=== PATIENT | female | born 1980 | race Two or more races ===

== ENCOUNTER 2024-01-31 02:44 | Inpatient (IN) | payer MEDICAID ==
[~2024-01-31] VITALS: Ht 154.9 cm; Wt 95.3 kg
[2024-01-31 03:00] VITALS: PULSE 133; RESP 26; O2SAT 95
[2024-01-31] MEDS: VANCOMYCIN 1GM/200ML 200 ML IV ONE (03:45)
[2024-01-31] MEDS: SODIUM CHLORIDE 0.9% 1,000 ML IV ONE ×4 (03:45→07:01)
[2024-01-31] MEDS: PIPERACILLIN-TAZOB 3.375GM 100 ML IV ONE (03:45)
[2024-01-31 04:15] LABS: Basophils # (auto) 0 10 ^3/uL (0-0.2); Basophils % (auto) 0.2 % (0.0-2.0); Eosinophils # (auto) 0 10 ^3/uL (0-0.8); Eosinophils % (auto) 0.1 % (0.0-7.0); Hematocrit 36.9 % (36.0-46.0); Hemoglobin 12.3 g/dL (12.2-16.2); Lymphocytes # (auto) 0.3 10 ^3/uL (0.4-5.4); Lymphocytes % (auto) 5.1 % (10.0-50.0); Mean Corpuscular Hemoglobin 28.9 pg (28.0-32.0); Mean Corpuscular Hgb Conc. 33.2 g/dL (32.0-36.0); Mean Corpuscular Volume 86.9 fL (80.0-100.0); Monocytes # (auto) 0 10 ^3/uL (0-1.3); Monocytes % (auto) 0.7 % (0.0-12.0); Neutrophils # (auto) 4.8 10 ^3/uL (1.6-8.6); Neutrophils % (auto) 93.9 % (37.0-80.0); Nucleated Red Blood Cells % 0.2 %; Red Blood Cells 4.25 10^6/uL (4.0-5.20); Red Cell Distribution Width 14.5 % (11.8-14.3); White Blood Cell 5.1 10^3/uL (4.4-10.8)
[2024-01-31 04:17] LABS: Chloride 108 mmol/L (98-107); Potassium 3.3 mmol/L (3.5-5.1); Sodium 139 mmol/L (136-145)
[2024-01-31 04:18] LABS: Anion Gap 11 (5-15); Calcium 8.9 mg/dL (8.7-10.4); Carbon Dioxide 20 mmol/L (20-30)
[2024-01-31 04:23] LABS: Glucose 147 mg/dL (74-106)
[2024-01-31 04:25] LABS: BUN/Creatinine Ratio 9.7 (10.0-20.0); Blood Urea Nitrogen 12 mg/dL (9-23)
[2024-01-31] MEDS ORDERED: ONDANSETRON HCL 4 MG/2 ML VIAL IV PRN (06:30)
[2024-01-31] MEDS ORDERED: VANCOMYCIN PER PHARMACY 0 MG IV SCH (06:30)
[2024-01-31] MEDS: SODIUM CHLORIDE 0.9% 1,000 ML IV SCH (06:50)
[2024-01-31] MEDS: HYDROcodone-ACET 5/325MG TAB PO PRN (06:51)
[2024-01-31 06:52] LABS: Albumin 3.9 g/dL (3.2-4.8)
[2024-01-31 06:52] LABS: Urine Bacteria None Seen /hpf (None Seen)
[2024-01-31 06:53] LABS: Total Protein 6.8 g/dL (5.7-8.2)
[2024-01-31 07:28] LABS: Bilirubin, Direct 0.5 mg/dL (<0.3)
[2024-01-31 07:29] LABS: Urine Blood 3+ /uL (Negative); Urine Clarity Turbid (Clear); Urine Color Light-Orange (Yellow); Urine Mucus FEW (None Seen); Urine Protein, UAD 2+ (Negative); Urine Specific Gravity 1.021 (1.001-1.035); Urine Urobilinogen Normal (Negative); Urine WBC 36 /hpf (0 - 5); Urine pH 5.5 (5.0-9.0)
[2024-01-31 08:00] VITALS: PULSE 107; RESP 30; O2SAT 96
[2024-01-31] MEDS ORDERED: NITROGLYCERIN 0.4 MG SL TAB SL PRN (08:00)
[2024-01-31] MEDS ORDERED: MORPHINE SULFATE INJ 2 MG/ml SYRG IV PRN (08:00)
[2024-01-31] MEDS: POTASSIUM CHL 20 Meq TABLET PO ONE (08:58)
[2024-01-31] MEDS: NOREPINEPHRINE 8 MG/250ML KIT 250 ML IV SCH (09:00)
[2024-01-31] MEDS: PIPERACILLIN-TAZOB 3.375GM 100 ML IV SCH (13:39)
[2024-01-31] MEDS: ACETAMINOPHEN 325 MG TAB PO PRN (21:11)
[2024-01-31] MEDS: VANCOMYCIN 750mg/150ml 150 ML IV SCH (21:49)
[2024-02-01 06:18] LABS: Basophils # (auto) 0.1 10 ^3/uL (0-0.2); Basophils % (auto) 0.4 % (0.0-2.0); Eosinophils # (auto) 0.1 10 ^3/uL (0-0.8); Eosinophils % (auto) 0.9 % (0.0-7.0); Hematocrit 32.9 % (36.0-46.0); Lymphocytes # (auto) 0.7 10 ^3/uL (0.4-5.4); Lymphocytes % (auto) 4.2 % (10.0-50.0); Mean Corpuscular Hemoglobin 29.1 pg (28.0-32.0); Mean Corpuscular Hgb Conc. 33.3 g/dL (32.0-36.0); Mean Corpuscular Volume 87.5 fL (80.0-100.0); Monocytes # (auto) 0.9 10 ^3/uL (0-1.3); Monocytes % (auto) 5.3 % (0.0-12.0); Neutrophils # (auto) 14.9 10 ^3/uL (1.6-8.6); Neutrophils % (auto) 89.2 % (37.0-80.0); Red Blood Cells 3.76 10^6/uL (4.0-5.20); Red Cell Distribution Width 15.5 % (11.8-14.3); White Blood Cell 16.7 10^3/uL (4.4-10.8)
[2024-02-01 06:32] LABS: Alanine Aminotransferase 76 U/L (7-40); Albumin 3.6 g/dL (3.2-4.8); Alkaline Phosphatase 118 U/L (46-116); Anion Gap 10 (5-15); Aspartate Aminotransferase 72 U/L (13-40); Calcium 8.8 mg/dL (8.5-10.1); Carbon Dioxide 19 mmol/L (20-30); Chloride 111 mmol/L (98-107); Glucose 117 mg/dL (74-106); Potassium 3.5 mmol/L (3.5-5.1); Sodium 140 mmol/L (136-145)
[2024-02-01 06:33] LABS: Bilirubin, Total 1.9 mg/dL (0.2-1.0); Total Protein 6.2 g/dL (5.7-8.2)
[2024-02-01 06:40] LABS: Blood Urea Nitrogen < 5 mg/dL (9-23)
[2024-02-01] MEDS: SODIUM CHLORIDE 0.9% 1,000 ML IV SCH (14:30)
[2024-02-01 19:30] VITALS: PULSE 92; RESP 14; O2SAT 94
[2024-02-02] VITALS (10 sets, daily range): BP systolic 114–139; BP diastolic 48–81; PULSE 86–95; RESP 14–20; TEMP 97.2–98.8; O2SAT 95–98
[2024-02-02] MEDS ORDERED: LOSA-534 PO (02:30)
[2024-02-02] MEDS ORDERED: MULT-1018 PO (02:30)
[2024-02-02 11:46] LABS: Basophils # (auto) 0 10 ^3/uL (0-0.2); Basophils % (auto) 0.4 % (0.0-2.0); Eosinophils # (auto) 0.2 10 ^3/uL (0-0.8); Eosinophils % (auto) 1.8 % (0.0-7.0); Hemoglobin 11.6 g/dL (12.2-16.2); Lymphocytes # (auto) 0.8 10 ^3/uL (0.4-5.4); Lymphocytes % (auto) 6.6 % (10.0-50.0); Mean Corpuscular Hemoglobin 28.2 pg (28.0-32.0); Mean Corpuscular Hgb Conc. 32.2 g/dL (32.0-36.0); Mean Corpuscular Volume 87.6 fL (80.0-100.0); Monocytes # (auto) 0.5 10 ^3/uL (0-1.3); Monocytes % (auto) 3.8 % (0.0-12.0); Neutrophils # (auto) 10.4 10 ^3/uL (1.6-8.6); Neutrophils % (auto) 87.4 % (37.0-80.0); Red Blood Cells 4.11 10^6/uL (4.0-5.20); Red Cell Distribution Width 14.9 % (11.8-14.3); White Blood Cell 11.9 10^3/uL (4.4-10.8)
[2024-02-02 11:59] LABS: Chloride 106 mmol/L (98-107); Potassium 3.5 mmol/L (3.5-5.1); Sodium 137 mmol/L (136-145)
[2024-02-02 12:00] LABS: Anion Gap 7 (5-15); Calcium 9.1 mg/dL (8.5-10.1); Carbon Dioxide 24 mmol/L (20-30)
[2024-02-02 12:05] LABS: BUN/Creatinine Ratio 7.8 (10.0-20.0); Blood Urea Nitrogen 6 mg/dL (9-23); Glucose 164 mg/dL (74-106)
[2024-02-02] MEDS: DOCUSATE SOD 100 MG CAP PO PRN (12:47)
[2024-02-02] MEDS: MORPHINE SULFATE 4 MG/ML SYR/VIAL IV PRN (12:49)
[2024-02-03] VITALS (9 sets, daily range): BP systolic 115–142; BP diastolic 63–85; PULSE 86–101; RESP 14–22; TEMP 97.4–100; O2SAT 94–98
[2024-02-03] MEDS ORDERED: VANCOMYCIN 1GM/200ML 200 ML IV SCH
[2024-02-03] MEDS: VANCOMYCIN 1GM/200ML 200 ML IV SCH ×2 (01:37→12:00)
[2024-02-03 13:36] LABS: INR 0.95 (0.9-1.15); Partial Thromboplastin Time 25.5 SEC (24.5-34.5); Prothrombin Time 10.1 sec (9.3-11.8)
[2024-02-03 15:24] LABS: Urine Bacteria None Seen /hpf (None Seen)
[2024-02-03 15:40] LABS: Urine Amorphous Crystal FEW /hpf (None Seen); Urine Blood 1+ /uL (Negative); Urine Clarity Clear (Clear); Urine Color Light-Yellow (Yellow); Urine Mucus FEW (None Seen); Urine Protein, UAD Negative (Negative); Urine Specific Gravity 1.015 (1.001-1.035); Urine Urobilinogen Normal (Negative); Urine WBC 2 /hpf (0 - 5)
[2024-02-04] VITALS (9 sets, daily range): BP systolic 100–145; BP diastolic 60–83; PULSE 91–101; RESP 16–18; TEMP 98.3–99.3; O2SAT 92–98
[2024-02-04 07:07] LABS: Basophils # (auto) 0.1 10 ^3/uL (0-0.2); Basophils % (auto) 0.6 % (0.0-2.0); Eosinophils # (auto) 0.1 10 ^3/uL (0-0.8); Eosinophils % (auto) 0.8 % (0.0-7.0); Hemoglobin 12.2 g/dL (12.2-16.2); Lymphocytes % (auto) 13.6 % (10.0-50.0); Mean Corpuscular Hemoglobin 28.5 pg (28.0-32.0); Mean Corpuscular Hgb Conc. 32.9 g/dL (32.0-36.0); Mean Corpuscular Volume 86.6 fL (80.0-100.0); Monocytes # (auto) 1.1 10 ^3/uL (0-1.3); Monocytes % (auto) 7.4 % (0.0-12.0); Neutrophils # (auto) 11.5 10 ^3/uL (1.6-8.6); Neutrophils % (auto) 77.6 % (37.0-80.0); Red Blood Cells 4.28 10^6/uL (4.0-5.20); Red Cell Distribution Width 15.1 % (11.8-14.3); White Blood Cell 14.8 10^3/uL (4.4-10.8)
[2024-02-04 07:10] LABS: Alanine Aminotransferase 67 U/L (7-40); Alkaline Phosphatase 165 U/L (46-116); Anion Gap 6 (5-15); Calcium 8.9 mg/dL (8.7-10.4); Carbon Dioxide 23 mmol/L (20-30); Chloride 107 mmol/L (98-107); Potassium 3.5 mmol/L (3.5-5.1); Sodium 136 mmol/L (136-145)
[2024-02-04 07:11] LABS: Aspartate Aminotransferase 46 U/L (13-40); Glucose 132 mg/dL (74-106)
[2024-02-04 07:12] LABS: BUN/Creatinine Ratio 10.3 (10.0-20.0); Blood Urea Nitrogen 6 mg/dL (9-23); Magnesium 1.9 mg/dL (1.6-2.6)
[2024-02-04 07:13] LABS: Albumin 3.8 g/dL (3.2-4.8)
[2024-02-04 07:14] LABS: Bilirubin, Total 0.5 mg/dL (0.2-1.0); Total Protein 7.1 g/dL (5.7-8.2)
[2024-02-04] MEDS ORDERED: fentaNYL CITRATE 100 MCG/2 ML VL ONE (08:59)
[2024-02-04] MEDS ORDERED: PROPOFOL 10 MG/ML 20 ML IV ONE (08:59)
[2024-02-04] MEDS ORDERED: MEPERIDINE HCL (50 MG/ML) 1 ML VIAL ONE (09:32)
[2024-02-04] MEDS ORDERED: PHENYLEPHRINE HCL 10 MG/ML VL ONE (09:44)
[2024-02-04] MEDS ORDERED: MEPERIDINE HCL (25 MG/ML) 1ML VIAL ONE (10:10)
[2024-02-04] MEDS ORDERED: HYDROmorphone HCL 2 MG/ML VL/or syr IV PRN (10:30)
[2024-02-04] MEDS ORDERED: MEPERIDINE HCL (25 MG/ML) 1ML VIAL IV PRN (10:30)
[2024-02-04] MEDS: ONDANSETRON HCL 4 MG/2 ML VIAL IV ONE (13:43)
[2024-02-04] MEDS: VANCOMYCIN 1GM/200ML 200 ML IV SCH (14:42)
[2024-02-05] VITALS (8 sets, daily range): BP systolic 97–139; BP diastolic 58–85; PULSE 74–87; RESP 16–19; TEMP 97.6–98.2; O2SAT 94–97
[2024-02-05] MEDS: VANCOMYCIN 1GM/200ML 200 ML IV SCH (07:48)
[2024-02-05 08:18] LABS: Chloride 110 mmol/L (98-107); Sodium 139 mmol/L (136-145)
[2024-02-05 08:19] LABS: Anion Gap 6 (5-15); Carbon Dioxide 23 mmol/L (20-30)
[2024-02-05 08:20] LABS: Calcium 9.3 mg/dL (8.5-10.1)
[2024-02-05 08:24] LABS: Glucose 162 mg/dL (74-106)
[2024-02-05 08:25] LABS: BUN/Creatinine Ratio 10.3 (10.0-20.0); Blood Urea Nitrogen 7 mg/dL (9-23)
[2024-02-05] MEDS ORDERED: MORPHINE SULFATE 4 MG/ML SYR/VIAL IV PRN (08:45)
[2024-02-05] MEDS: LACTULOSE 20Gm/30ML SOLN PO ONE (11:15)
[2024-02-05] MEDS: DOCUSATE SOD 100 MG CAP PO SCH (12:27)
[2024-02-05] MEDS: VANCOMYCIN 750mg/150ml 150 ML IV SCH (18:07)
[2024-02-06] VITALS (8 sets, daily range): BP systolic 109–139; BP diastolic 54–77; PULSE 72–90; RESP 16–20; TEMP 97.8–98.7; O2SAT 93–100
[2024-02-06] MEDS: VANCOMYCIN 750mg/150ml 150 ML IV SCH (21:16)
[2024-02-06] MEDS: TEMAZEPAM 15 MG CAP PO ONE (22:29)
[2024-02-07] VITALS (8 sets, daily range): BP systolic 106–149; BP diastolic 63–100; PULSE 73–94; RESP 16–18; TEMP 97.6–98.7; O2SAT 95–99
[2024-02-07] MEDS: LACTULOSE 20Gm/30ML SOLN PO ONE (11:45)
[2024-02-07] MEDS: ZOLPIDEM TARTRATE 5 MG TAB PO PRN (22:31)
[2024-02-08 05:00] VITALS: BP_SYST 127; BP_SYST 143; BP_DIAS 58; BP_DIAS 80; PULSE 64; PULSE 81; RESP 16; RESP 18; TEMP 97.9; TEMP 98; O2SAT 96; O2SAT 99
[2024-02-08 09:35] VITALS: BP 109/59; PULSE 75; RESP 16; TEMP 98; O2SAT 97
[2024-02-08] MEDS ORDERED: AUG875T PO (11:35)
[2024-02-08] MEDS ORDERED: LEVO500T91 PO (11:40)
[2024-02-08 12:00] VITALS: BP 106/61; PULSE 70; RESP 16; TEMP 98; O2SAT 97
[2024-02-08 12:47] VITALS: TEMP 36.7
== END 2024-02-08 13:30 | disposition home health service (06) | DRG 710 ==
LOC: EDBD 02:44 → EDUNIT# 02:44 → ER 02:44 → OVERFLOW 07:52 → TELE-WESTW 02-01 22:57 → WEST WING 02-07 11:44
PROVIDERS: ADMIT Nurse Practitioner Family; ATTEND Internal Medicine Geriatric Medicine
PROC: 0U9M0ZZ Drainage of Vulva, Open Approach (ICD-10-PCS; principal; 2024-02-04 09:24)
DX: A41.51 Sepsis due to Escherichia coli [E. coli] (principal); R65.21 Severe sepsis with septic shock; N17.9 Acute kidney failure, unspecified; E87.6 Hypokalemia; I10 Essential (primary) hypertension; N75.1 Abscess of Bartholin's gland; R73.9 Hyperglycemia, unspecified; N76.4 Abscess of vulva; K76.0 Fatty (change of) liver, not elsewhere classified; N76.2 Acute vulvitis; K59.00 Constipation, unspecified; G47.00 Insomnia, unspecified; Z98.891 History of uterine scar from previous surgery; Z90.49 Acquired absence of other specified parts of digestive tract; Z98.51 Tubal ligation status
CPT/HCPCS: 36415; 71045; 80048; 80053; 80076; 80202; 81001; 82565; 83036; 83605; 83735; 84702; 85025; 85610; 85730; 87040; 87070; 87075; 87077; 87186; 87205; 93005; 96365; 96368; 99291; G0378; J2543; J2704

== ENCOUNTER → 2024-11-21 | Outpatient (CLI) | payer MEDICAID ==
[~2024-11-21] MED LIST: LEVO500T91 PO; LOSA-534 PO; MULT-1018 PO
[2024-11-21 10:19] LABS: Eosinophils # (auto) 0.3 10 ^3/uL (0-0.8); Eosinophils % (auto) 3.9 % (0.0-7.0); Hemoglobin 12.5 g/dL (12.2-16.2); Mean Corpuscular Volume 79.8 fL (80.0-100.0); Nucleated Red Blood Cells % 0.1 %; White Blood Cell 6.6 10^3/uL (4.4-10.8)
[2024-11-21 10:21] LABS: Basophils # (auto) 0.1 10 ^3/uL (0-0.2); Basophils % (auto) 0.8 % (0.0-2.0); Hematocrit 38.5 % (36.0-46.0); Mean Corpuscular Hemoglobin 25.8 pg (28.0-32.0); Mean Corpuscular Hgb Conc. 32.4 g/dL (32.0-36.0); Monocytes # (auto) 0.3 10 ^3/uL (0-1.3); Neutrophils % (auto) 60.3 % (37.0-80.0); Platelet Count (auto) 218 10^3/uL (140-450); Red Blood Cells 4.82 10^6/uL (4.0-5.20); Red Cell Distribution Width 16.6 % (11.8-14.3)
[2024-11-21 10:35] LABS: Urine Blood 1+ /uL (Negative); Urine Clarity Turbid (Clear); Urine Color Yellow (Yellow); Urine Protein, UAD TRACE (Negative); Urine Specific Gravity 1.026 (1.001-1.035); Urine Urobilinogen Normal (Negative); Urine pH 5.5 (5.0-9.0)
[2024-11-21 11:02] LABS: Alanine Aminotransferase 20 U/L (7-40); Albumin 4.6 g/dL (3.2-4.8); Alkaline Phosphatase 92 U/L (46-116); Anion Gap 10 (5-15); Aspartate Aminotransferase 19 U/L (13-40); BUN/Creatinine Ratio 19.5 (10.0-20.0); Blood Urea Nitrogen 15 mg/dL (9-23); Calcium 9.6 mg/dL (8.7-10.4); Carbon Dioxide 23 mmol/L (20-31); Potassium 4.1 mmol/L (3.5-5.1); Sodium 140 mmol/L (136-145); Total Protein 7.8 g/dL (5.7-8.2)
[2024-11-21 11:03] LABS: Bilirubin, Total 0.3 mg/dL (0.2-1.0); Chloride 107 mmol/L (98-107); Glucose 110 mg/dL (74-106)
== END | disposition home or self-care (01) ==
LOC: LAB 09:39
PROVIDERS: ATTEND Obstetrics & Gynecology
DX: Z01.812 Encounter for preprocedural laboratory examination (principal)
CPT/HCPCS: 36415; 80053; 81003; 81025; 84702; 85025; 86850; 86900; 86901

== ENCOUNTER → 2024-11-24 | Day surgery (SDC) | payer MEDICAID ==
[~2024-11-24] VITALS: Ht 154.9 cm; Wt 96.2 kg
[~2024-11-24] MED LIST changes: +DexAMETHasone SOD PHOS 10MG/1ML VIAL INJ ONE; +IBUP-1455 PO; -LEVO500T91 PO; +MIDAZOLAM HCL 2MG/2ML 2ml VIAL (1mg/ml) ONE; -MULT-1018 PO; +PROPOFOL 10 MG/ML 20 ML IV ONE; +fentaNYL CITRATE 100 MCG/2 ML VL ONE
[2024-11-24] MEDS: ceFAZolin 2 GM/D5W100ml 100 ML IV ONE (12:10)
[2024-11-24] MEDS: LIDOCAINE 1% HCL (LOCAL ANESTH.) INJ 20ML MDV ONE (13:04)
[2024-11-24 13:15] VITALS: PULSE 68; RESP 12; TEMP 98.5; O2SAT 99
--- NOTE | 2024-11-24 13:18 | DVHPN2 ---
Visit Coding OBGYN Date of Service: Nov 24, 2024 Billing Provider: MIRZA HARRISON DO BRIDGE TENDER Common Visit Codes: PROCEDURE ONLY (CPT 40430, MARSUPIALIZATION OF BARTHOLIN GLAND CYST (RIGHT SIDE)) MIRZA HARRISON DO Nov 24, 2024 13:18
[2024-11-24 13:35] VITALS: BP 116/69; PULSE 62; RESP 15; O2SAT 94
--- NOTE | 2024-11-24 13:39 | DVHOP ---
DATE OF SURGERY: 11/24/2024 PREOPERATIVE DIAGNOSIS: Recurrent right Bartholin cyst. FINAL DIAGNOSIS: Recurrent right Bartholin cyst. PROCEDURE PERFORMED: Marsupialization of right Bartholin gland cyst. SURGEON: Zen Stevenson DO. UNDERWRITING CLERKS SUPERVISOR: None. TYPE OF ANESTHESIA: General. ANESTHESIOLOGIST: Dr. Isaac Cadena. DESCRIPTION OF FINDINGS: The Bartholin gland cyst on the right was approximately 3-4 cm enlarged with cystic fluid, nonpurulent fluid. Complete marsupialization performed with minimal bleeding. TECHNICAL PROCEDURE: After informed consent was obtained, the patient was taken to the operating room where she underwent smooth induction with general anesthesia. The patient was placed in dorsal lithotomy position in [facility]. The vagina and perineum were thoroughly prepped and the patient sterilely draped in the usual fashion. An exam under anesthesia was performed with the above noted findings. The right Bartholin gland contained a cyst and it was enlarged, approximately 4 cm. This was injected with 1% lidocaine, approximately 10 mL were used to hugo the vaginal epithelium. Next, a vertical skin incision was made over the cyst. The cyst wall was identified and sharply entered. The cyst wall then was grasped with Allis clamps. The cyst cavity was explored with my finger. There were no loculations. It was thoroughly irrigated with normal saline. Next, using 2-0 Vicryl, the cyst skin and cyst wall edges were everted and sutured in interrupted fashion circumferentially. Good hemostasis was confirmed. The patient was then taken out of lithotomy position, awakened, and taken to recovery room in stable condition. INTRAOPERATIVE COMPLICATIONS: None. ESTIMATED BLOOD LOSS: Less than 10 mL. POSTOPERATIVE CONDITION: Stable. SPECIMENS: None. DO KARL Hernandez/TOVA TID: [id number] RECEIPT: [id number] [facility]
--- NOTE | 2024-11-29 11:28 | DVHHP2 ---
DOPING SUPERVISOR CC & HPI Date Date of Admission: Nov 24, 2024 Chief Complaints: Reason for admission: Recurrent Bartholin Cyst History of Present Complaints History of Present Complaints 44y female with history of recurrent Bartholin cysts. I&D and word catheter placements have failed in the past c/o vulvar pain due to cyst with drainage. Past Medical History Cardiac: No pertinent Hx Pulmonary: No pertinent Hx Central Nervous System: No pertinent Hx GI: No pertinent Hx Hemotology/Oncology: No pertinent Hx Hepatobiliary: No pertinent Hx Psychiatric: No pertinent Hx Musculoskeletal: No pertinent Hx Rheumotologic: No pertinent Hx Infectious Disease: No peritnent Hx ENT: No pertinent Hx Renal/: No pertinent Hx Endocrine: No pertinent Hx Dermatology: No pertinent Hx Past Surgical History: No pertinent Hx DOPING SUPERVISOR History DOPING SUPERVISOR History DOPING SUPERVISOR History: No history of STI NORMAL PAP Allergies: Coded Allergies: NO KNOWN ALLERGIES (Unverified , 07/23/14) Home Meds Active Scripts Ibuprofen Micronized (Ibuprofen) 800 Mg Tab, 800 MG PO Q8HPRN PRN, #30 TAB Prov:MIRZA HARRISON DO 11/24/24 Reported Medications Losartan Potassium (Losartan Potassium) 50 Mg Tab, 1 TAB PO DAILY, #30 TAB 5 Refills 02/02/24 Social History No EtOH, Drug or Tobacco use Review of Systems Constitutional: No symptom reported Ears, Nose, & Throat: No symptom reported Eyes: No symptom reported Pulmonary/Respiratory: No symptom reported Cardiovascular: No symptom reported Gastrointestinal: No symptom reported Genitourinary: No symptom reported Musculoskeletal: No symptom reported Skin: No symptom reported Psychiatric: No symptom reported Endocrine: No symptom reported Hemotologic/Lymphatic: No symptom reported Physical Exam Physical Exam HEENT: NCAT Lungs: Clear Abdomen: Non tender Extremities: Normal Reflexes: Normal Club Room Attendant/Pelvic Exam: Other (4cm Bartholin cyst on right) Assessment and Plan Plan Assessment and Plan: Bartholin cyst Right Plan Consented for Bartholin cyst marsupialization (right) R/B/A reviewed. Informed consent obtained Visit Coding OBGYN Date of Service: Nov 24, 2024 Billing Provider: MIRZA HARRISON DO DUPLICATING MACHINE MECHANIC Common Visit Codes: PROCEDURE ONLY MIRZA HARRISON DO Nov 29, 2024 11:28
== END | disposition home or self-care (01) ==
LOC: SUR 07:17
PROVIDERS: ATTEND Obstetrics & Gynecology
DX: N75.0 Cyst of Bartholin's gland (principal); N75.1 Abscess of Bartholin's gland; Z79.899 Other long term (current) drug therapy
CPT/HCPCS: 56440; J1100; J2003; J2250; J2704; J3010